=== PATIENT | male | born 1980 | race Caucasian/White ===

== ENCOUNTER → 2020-08-15 10:59 | Outpatient (CLI) | payer OTHER, SELFPAY ==
--- NOTE | 2020-08-15 14:58 | STRESSREP ---
Stress Test Report Date: 08/15/2020 Procedure: Exercise tolerance test/imaging study Indications: Chest pain Consent: Per the patient Procedure: The patient exercised on a Mukesh protocol for 9 minutes and 30 seconds achieving a peak heart rate of 169 bpm (93% predicted maximal heart rate) with a peak blood pressure 210/70 mmHg and a peak MET capacity of 10.8 METs. The baseline ECG demonstrated normal sinus rhythm. The peak exercise ECG demonstrated no significant ischemic changes. EKG during recovery revealed no significant ischemic changes [There were no cardiac dysrhythmias pretest, during exercise, or recovery]. The functional capacity was considered normal for age. There was [no complaint of chest discomfort during exercise or recovery]. The examination was discontinued secondary to achieving target heart rate. Impression: 1. Technically adequate (percent predicted maximal heart rate greater than 85%) exercise tolerance test 2. Stress test is negative for exercise-induced EKG changes of ischemia 3. The test test is negative for exercise-induced chest pain 4. Functional capacity is normal for age 5. Nuclear images pending Myocardial perfusion imaging study: Technique: The patient was injected with 14.8 mCi of technetium 99m Cardiolite and subsequently rest SPECT Cardiolite nuclear imaging was obtained in the horizontal long, vertical long, and short axis views. The patient exercised on a Mukesh protocol. Please see above for details. The patient was injected with 44.2 mCi of technetium 99m Cardiolite and subsequently stress SPECT Cardiolite nuclear imaging was obtained in the horizontal long, vertical long, and short axis views. A gated Cardiolite study at peak stress was obtained. Interpretation: Rest and stress SPECT Cardiolite nuclear imaging status post realignment, normalization, and attenuation correction, demonstrates normal myocardial radioisotope uptake. The gated Cardiolite study demonstrates no significant regional wall motion abnormalities. The reported LVEF is 66%. Impression: 1. There is no evidence of significant ischemia or infarction. 2. The gated Cardiolite study reports an LVEF of 66%. This note was generated with [employer] software. It may contain incorrect words, spelling, and punctuation that were not noted in checking the note before signing.
== END ==
PROVIDERS: PCP Family Medicine
DX: Z13.6 Encounter for screening for cardiovascular disorders (principal); R94.31 Abnormal electrocardiogram [ECG] [EKG]
CPT/HCPCS: 78452; 93017; A9500

== ENCOUNTER 2020-11-28 09:53 | Day surgery (SDC) | payer OTHER, SELFPAY ==
[2020-11-28] VITALS (9 sets, daily range): BP systolic 114–164; BP diastolic 59–100; PULSE 56–83; RESP 16–32; TEMP 36.3–37.3; O2SAT 96–100; BMI 31.6
[2020-11-28] MEDS: Lactated Ringers 1,000 ML 100 ML IV (10:39)
--- NOTE | 2020-11-28 11:19 | HP.PCM_ITS ---
History and Physical Date of Admission: 11/28/20 HISTORY AND PHYSICAL ? Venkat Saenz 1980 ? ? REFERRING PHYSICIAN: Jovani Hook MD ? CHIEF COMPLAINT: Follow Up (consult left inguinal hernia) ? HPI: Venkat is a 40 year old male with a complaint of a bulge and discomfort in his left inguinal region. The patient notes discomfort in this area with lifting, straining and coughing. The symptoms have increased, over the past few months. ? The patient notes no symptoms of bowel obstruction and denies nausea or vomit ing. ? The patient is being seen by me today at the request of Dr. Jovani Hook MD for my opinion and advice regarding Hernia, inguinal, left (primary encounter diagnosis). ? ? PAST MEDICAL HISTORY PAST MEDICAL HISTORY Diagnosis Date ? Elevated blood-pressure reading without diagnosis of hypertension ? ? Kidney stones ? ? Left inguinal hernia ? ? ? PAST SURGICAL HISTORY PAST SURGICAL HISTORY Procedure Laterality Date ? LITHOTRIPSY / 1 SIDE Right 2013 ? PAST SURGICAL HISTORY OF Right 03/2015 ? R ankle Tendon repair and remove Ganglion Cyst - [facility] ? PAST SURGICAL HISTORY OF Right 03/2016 ? Right ankle - Repair Tendon, Ligaments and Cartilage. [facility], Dr. Jeffries ? PAST SURGICAL HISTORY OF N/A ? ? [place] teeth pulled ? ? ? CURRENT MEDICATIONS Current Outpatient Medications Medication Sig ? lisinopril (ZESTRIL, PRINIVIL) 10 mg tablet Take 1 tablet by mouth once daily. ? No current facility-administered medications for this visit. ? ? ALLERGIES: Patient has no known allergies. ? PERSONAL HISTORY: SOCIAL HISTORY Social History ? Tobacco Use ? Smoking status: Never Smoker ? Smokeless tobacco: Never Used Vaping Use ? Vaping Use: Never used Substance Use Topics ? Alcohol use: Yes ? ? Comment: Couple beers 4 out of 7 days a week. ? Drug use: No ? FAMILY HISTORY: FAMILY HISTORY FAMILY HISTORY Problem Relation Age of Onset ? Hypertension Mother ? ? Diabetes Mother ? ? Hypertension Father ? ? other (Other) Father ? ? Collapsed Lung ? Hypertension Maternal Grandmother ? ? Heart Maternal Grandmother ? ? Murmur ? Heart Maternal Grandfather ? ? MS - 52, believe was original. 4 MS's ? other (Other) Paternal Grandmother ? ? Dementia - at 93, but no other health concerns. ? ? REVIEW OF SYMPTOMS: The review of systems data was entered by the nurse and reviewed by me ? Nursing Notes: Edilma Gao RN 11/11/2020 3:23 PM Signed REVIEW OF SYSTEMS: ?General:???The patient notes fatigue, notes weight loss (patient has been trying), denies weight gain, denies feeling hot, and denies feelings of cold. ?Eyes: ?The patient denies glaucoma, notes eye injury/surgery, wears glasses or contacts. ?Ear/Nose/Throat: ?The patient denies allergies, notes hayfever, denies ear infections, and denies bloody noses. ?Cardiovascular: ?The patient denies chest pain, denies heart disease, denies high blood pressure,denies cardiac stent, denies prior heart attack, notes irregular heart beat, notes high cholesterol, ?denies poor circulation, denies heart failure, other cardiac issues, denies claudication, denies cold feet, denies peripheral arterial stent. ?Respiratory: ?The patient denies tuberculosis, denies pneumonia, denies frequent cough, denies pulmonary embolism, denies shortness of breath, and denies coughing up blood. ?Gastrointestinal: ?The patient denies difficulty swallowing, notes acid reflux, denies ulcers, denies vomiting, denies jaundice/hepatitis, denies gallbladder problems, denies black or tarry stools, denies hemorrhoids, denies bleeding from rectum, denies diverticulitis, denies constipation, denies diarrhea, denies loss of stool control, and notes hernias. ?Kidney/Bladder: ?The patient notes kidney stones, denies urine infections, and denies bloody urine. ?Skin: ?The patient denies a history of skin cancer, denies bleeding/changing moles, and denies a history of skin rash. ?Neurologic: ?The patient denies a history of epilepsy/convulsions, denies headaches, denies head/spinal injuries, and denies stroke/TIA. ?Psychiatric: ?The patient denies psychiatric medications, denies depression, and denies voices, denies substance abuse. ?Endocrine: ?The patient denies thyroid disorders, denies diabetes, and denies hormonal problems. ?Hematologic: ?The patient denies a history of bruising, denies bleeding, and denies anemia, denies blood clots. ?Infections: ?The patient denies a history of measles and mumps, denies rheumatic fever, and denies sexually transmitted diseases. ?Musculoskeletal: ?The patient denies back pain/injury, denies back problems, denies sciatica, notes knee/foot trouble, denies arthritis, or denies gout. When was patient's last Mammogram screening? N/A ?Last Colonoscopy: ?None Edilma Gao RN ? ? ? PHYSICAL EXAMINATION: ? General: The patient is 40 year old male, well nourished, well hydrated in no acute distress. The patient is oriented to time, place, and person. ? VITALS: Blood pressure 120/74, pulse 107, temperature 36.9 ?C (98.5 ?F), height 182.9 cm (6'), weight 105.4 kg (232 lb 6.4 oz), SpO2 100 %. Body mass index is 31.52 kg/m?. ? HEENT: Normal cephalic, ataumatic, pupils are equally round, sclera are anicteric, mucous membranes are moist, oropharynx is clear. Neck has no masses, asymmetry or lymphadenopathy. Thyroid is unremarkable. ? Respiratory: Clear to auscultation and percussion. Normal respiratory excursion and pattern. ? Cardiac: Examination is regular rate and rhythm. ? Abdominal exam: Soft, nontender, with no palpable masses. No hepatosplenomegaly. A small, reducible left inguinal hernia, no right inguinal or umbilical hernias are noted ? Rectal exam: exam deferred ? Extremities: no clubbing, cyanosis or edema. No adenopathy. ? Other: ? ? LABORATORY VALUES: As Noted ? RADIOLOGIC STUDIES: As Noted ? Assessment IMPRESSION: left inguinal hernia ? PLAN: My plan is to perform a laparoscopic left inguinal hernia repair with mesh. The planned surgical procedure was discussed extensively with the patient. The risks, benefits, anticipated outcomes and possible complications were mentioned. Venkat dixonands that all hernia repair surgery has a chance of recurrence and/or chronic post operative pain. My staff has also explained the procedure in understandable terms and the patient was given the option to take printed material concerning the planned procedure. The patient had the opportunity to ask questions concerning the planned procedure. The patient freely consents to the planned procedure. ? My findings have been communicated to Dr. Jovani Hook MD via shared medical record. This note will be forwarded to Dr. Jovani Hook MD. ? Diagnoses: (K40.90) Hernia, inguinal, left (primary encounter diagnosis) ? Anticipated CPT Code: laparoscopic left inguinal hernia repair with mesh - 59809-799 ? Anticipated Anesthetic: General ? Patient weight: Blood pressure 120/74, pulse 107, temperature 36.9 ?C (98.5 ?F), height 182.9 cm (6'), weight 105.4 kg (232 lb 6.4 oz), SpO2 100 %. BMI: Body mass index is 31.52 kg/m?. ? Planned antibiotic: Ancef 2gm IVPB cargo and container inspector to OR ? SCDs needed - Yes Return to Clinic: The patient is instructed to follow-up with me 1 week post operatively. ? COVID (Procedure Consent) Procedure Criteria ? Procedure Criteria: Yes Elective The surgeon/proceduralist and patient have discussed in detail the risk of exposure to and/or potential harm posed by the COVID-19 virus with having a surgery/procedure at this time versus the risk of? delaying the surgery/procedure. It is not possible to know either the risk of delaying the surgery or procedure or chance of getting an infection with perfect accuracy, but a joint decision was made between the patient and the surgeon/proceduralist ?to proceed at this time with the scheduled surgery/procedure as indicated on the consent form. ? ? Venkat Martins III, MD I have re-examined the patient. There are no clinical changes since date of exam.
[2020-11-28] MEDS: Cefazolin 2 GM in 0.9% Normal Saline 100 ML IV (11:36)
[2020-11-28] MEDS: Bupivacaine Mpf 0.5% 30 ML VIAL (12:38)
--- NOTE | 2020-11-28 12:53 | PCM.OPRPT ---
Problems Associated Problem List Diagnoses (1) Left inguinal hernia: Report of Operation Date of Procedure: 11/28/20 Pre-Operative Diagnosis: Left inguinal hernia Post-Operative Diagnosis: Same Surgery/Procedure Performed:: Robotically assisted laparoscopic left inguinal hernia repair with mesh Surgeon: Venkat Martins regional vice president surgical sales: Buck Kearney Type of Anesthesia: General Anesthesiologist: Solis Borden Estimated Blood Loss (mL): < 25 cc Description of Procedure: Patient was brought into the operating room. Placed in the supine position. Under excellent general endotracheal ovation the abdomen was sterilely prepped and draped in usual fashion. Local was injected above the umbilicus. Dissection was carried down to the fascia the fascia was grasped with a Laura varies needle was placed inside the abdomen the abdomen was insufflated to 15 torr. #8 trocar was placed it was flanked by 2 other #8 trochars placed under direct visualization. There was no injury to underlying structures. Patient was placed in the headdown. Robot was brought in and docked appropriately. All of the trochars were burped appropriately. Patient was noted to have a left inguinal hernia of the right side was stable. I scored the peritoneum on the left I dissected down to Nishant's ligament dissecting off of the pubic tubercle I brought a indirect inguinal hernia back into the operating field making sure to identify the cord and vessel structures I dissected further laterally. I placed a Covidien progrip mesh into the wound. Reference number [id number] lot number [id number]. The mesh lay completely flat covering the defect well. I reperitonealized the area using a 3 OV lock suture covering the mesh completely. I inspected no rents were in the peritoneum. Suture was removed without difficulty. Trochars were removed without difficulty. Ilioinguinal nerve block was performed. Skin incisions were closed with subcuticular stitches of 4-0 Monocryl. Steri-Strips were applied sterile dressings were applied and the patient tolerated the procedure well. Admit VTE Documentation VTE Present on Admission: No VTE Mechan Device Prophylaxis: SCD's VTE Pharm Prophylaxis ordered?: No Reason prophylaxis not ordered:: Treatment Not Indicated
--- NOTE | 2020-11-28 12:58 | DCINST_ITS ---
Discharge Instructions Procedure Hernia Diet Discharge Diet: Light diet - advance as tolerated Activity Discharge Activity: Return to Normal Activity, May Drive (when you are no longer taking narcotic pain medications.) and May Shower (with the bandage in place 1-2 days after surgery.) Lifting Restrictions: 20 pounds for 8 weeks. Additional Activity Instructions:: Climbing stairs is fine, walking is e ncouraged. Sitting in bed may be uncomfortable. Sitting up using your lateral muscles (sitting up sideways) is usually more comfortable. Do not drive, work heavy equipment of sign legal documents for 24 hours. If your hernia repair was an ingunial repair, you may have scrotal swelling, an ice pack and/or athletic support can provide more comfort. Pain medications may cause nausea, you should typically eat light foods as you take your pain medications. Pain medications may also cause constipation. If you have difficulty with this, discuss with your doctor. Dressing / Incision Call your doctor if your incision/area has: Continuous Slow Oozing, Sudden Increased Bleeding, Increased Pain/ Swelling, Increased Redness and Foul Smelling Discharge Call your doctor if you observe: Fever of 101 or Higher Suture Line Care: Avoid Pulling/Pushing and Avoid Pinching/Bending Additional Dressing/Incision Instructions:: Leave the operative bandage on for 2-3 days. When you remove the bandage, leave the steri-strips on place until your follow up appointment or they fall off. Follow Up Care Please Follow Up With: Mary Escalante PA-C When: Call office to schedule an appointment to be seen in 7 days. Test Results: Test results from this visit will be discussed in further detail at your follow-up appointment, if applicable. Discharge Plan Admission Attending Provider: Venkat Martins Primary Care Provider: Jovani Hook Discharge Orders/Prescriptions Prescriptions: New oxycodone-acetaminophen [Percocet] 5-325 mg tablet 1 tab PO Q4H PRN (Reason: pain) 5 Days Qty: 30 RF: 0 Continued lisinopril 10 mg Tablet 10 mg PO DAILY RF: 0 Referrals / Follow Up: Jovani Hook MD [Primary Care Provider] - Mary Escalante PA-C [PHYSICIAN [employer]OLES[employer] AND RETAIL MERCHANT] - Disposition Disposition (needs filled in before D/C Order can be placed): Home, Self Care
[2020-11-28] MEDS: oxyCODONE 5 MG Tablet PO (14:58)
[2020-11-28] MEDS: Acetaminophen 325 MG Tablet PO (14:58)
== END 2020-11-28 15:58 | disposition home or self-care (01) ==
LOC: SDC 09:53 → AC 09:55
PROVIDERS: PCP Family Medicine; Referring Provider Surgery; Visit Provider Surgery
PROC: 0YQ64ZZ Repair Left Inguinal Region, Percutaneous Endoscopic Approach (ICD-10-PCS; CPT 49650; principal; 2020-11-28 11:40)
DX: K40.90 Unilateral inguinal hernia, without obstruction or gangrene, not specified as recurrent (principal); R03.0 Elevated blood-pressure reading, without diagnosis of hypertension; K21.9 Gastro-esophageal reflux disease without esophagitis; Z79.899 Other long term (current) drug therapy
CPT/HCPCS: 00840; 49650; S2900; J7120; J2405